=== PATIENT | male | born 1985 | race Caucasian/White ===

== ENCOUNTER 2019-03-10 08:35 | Emergency (ER) | payer BC, OTHER ==
--- NOTE | 2019-03-10 08:58 | ED ---
Complex/Multi-Sys Presentation - HPI Summary HPI Summary: A 33 y/o male presents to [facility] with a chief complaint of feeling nervous before a permanent move to [place] today. He reports that last night he woke up and felt really nervous, like before he was about to give a speech, and when he woke back up he still felt the same way. He thinks that something physical may be going on. He denies any routine headaches, urinary symptoms or abnormal bowel movements. He reports that two weeks ago he had a fever for one day, but he still has a cough. He also reports that hed occasionally feel a flutter in his chest. At triage he rated his pain as a 0/10 in severity. He states that he has not seen a doctor regularly or exercised regularly since 2010. He is a coffee drinker and admits to occasional EtOH use but denies smoking. He denies taking any medications, any PMHx of SHx. - History Of Current Complaint Chief Complaint: EDGeneral Time Seen by Provider: 03/10/19 08:49 Hx Obtained From: Patient Onset/Duration: Sudden Onset, Lasting Hours, Still Present Timing: Constant, Hours Severity Currently: None Severity Initially: Mild Location: Negative Character: Unable To Describe Aggravating Factor(s): nothing Alleviating Factor(s): nothing Associated Signs And Symptoms: Positive: Cough. Negative: Headache, Diarrhea, Fever - Allergies/Home Medications Allergies/Adverse Reactions: Allergies Allergy/AdvReac Type Severity Reaction Status Date / Time No Known Allergies Allergy Verified 03/10/19 08:41 Home Medications: Home Medications NK [No Home Medications Reported] 03/10/19 [History Confirmed 03/10/19] PMH/Surg Hx/FS Hx/Imm Hx Endocrine/Hematology History: Denies: Hx Diabetes, Hx Thyroid Disease Cardiovascular History: Denies: Hx Hypertension Respiratory History: Denies: Hx Asthma, Hx Chronic Obstructive Pulmonary Disease (COPD) GI History: Denies: Hx Ulcer Infectious Disease History: No Infectious Disease History: Denies: Hx Clostridium Difficile, Hx Hepatitis, Hx Human Immunodeficiency Virus (HIV), Hx of Known/Suspected MRSA, Hx Shingles, Hx Tuberculosis, Traveled Outside the [place] in Last 30 Days - Family History Known Family History: Negative: Cardiac Disease, Hypertension, Diabetes - Social History Alcohol Use: Occasionally Substance Use Type: Reports: None Smoking Status (MU): Never Smoked Tobacco Review of Systems Negative: Fever Positive: Other - positive: "flutter in chest" Positive: Cough Negative: Diarrhea Positive: no symptoms reported Negative: Headache Positive: Other - positive: nervous All Other Systems Reviewed And Are Negative: Yes Physical Exam - Summary Physical Exam Summary: Appearance: The patient is well-nourished in no acute distress and in no acute pain. Skin: The skin is warm and dry and skin color reflects adequate perfusion. HEENT: The head is normocephalic and atraumatic. The pupils are equal and reactive. The conjunctivae are clear and without drainage. Nares are patent and without drainage. Mouth reveals moist mucous membranes and the throat is without erythema and exudate. The external ears are intact. The ear canals are patent and without drainage. The tympanic membranes are intact. Neck: The neck is supple with full range of motion and non-tender. There are no carotid bruits. There is no neck vein distension. Respiratory: Chest is non-tender. Lungs are clear to auscultation and breath sounds are symmetrical and equal. Cardiovascular: Tachycardic at about 120 bpm. There is no murmur or rub auscultated. There is no peripheral edema and pulses are symmetrical and equal. Abdomen: The abdomen is soft and non-tender. There are normal bowel sounds heard in all four quadrants and there is no organomegaly palpated. Musculoskeletal: There is no back tenderness noted. Extremities are non-tender with full range of motion. There is good capillary refill. There is no peripheral edema or calf tenderness elicited. Neurological: Patient is alert and oriented to person, place and time. The patient has symmetrical motor strength in all four extremities. Cranial nerves are grossly intact. Deep tendon reflexes are symmetrical and equal in all four extremities. Psychiatric: The patient has an appropriate affect and does not exhibit any anxiety or depression. Triage Information Reviewed: Yes Vital Signs On Initial Exam: Initial Vitals Temp Pulse Resp BP Pulse Ox 98.9 F 105 16 150/99 99 03/10/19 08:37 03/10/19 08:37 03/10/19 08:37 03/10/19 08:37 03/10/19 08:37 Vital Signs Reviewed: Yes Diagnostics - Vital Signs Vital Signs Temp Pulse Resp BP Pulse Ox 03/10/19 08:37 98.9 F 105 16 150/99 99 - Laboratory Result Diagrams: 03/10/19 09:12 06/08/19 09:12 Lab Statement: Any lab studies that have been ordered have been reviewed, and results considered in the medical decision making process. - EKG 09:01 Cardiac Rate: Tachycardia - 101 bpm EKG Rhythm: Sinus Tachycardia Summary of EKG Findings: Sinus tachycardia at 101 bpm, normal ST, no ectopy, no STEMI. Re-Evaluation - Re-Evaluation First Eval Re-Evaluation Time: 11:01 Change: Unchanged Comment: Discussed results and plan for DC. Complex Multi-Symp Course/Dx Course Of Treatment: Mr. Arteaga presented with a concern that he woke up during the night and was wide awake. He had a great deal of difficulty getting back to sleep and once he did when he woke up in the morning he still felt very nervous. He was nontoxic in appearance with stable vitals. Labs are unremarkable including his thyroid as was his exam. This may all be anxiety related to the fact that he is moving to [place] today. I recommended he follow up with the PCP when he gets down there and he has a good job waiting for him working for the [employer] and should be able to accomplished easily. - Diagnoses Provider Diagnoses: Anxiety Discharge - Sign-Out/Discharge Documenting (check all that apply): Patient Departure - DC Patient Received Moderate/Deep Sedation with Procedure: No - Discharge Plan Condition: Stable Disposition: HOME Patient Education Materials: Anxiety (ED) Referrals: No Primary Care Phys,NOPCP [Primary Care Provider] - Additional Instructions: Establish with a PCP when you get to [place] Return to the ED if you experience any new or worsening symptoms. - Billing Disposition and Condition Condition: STABLE Disposition: Home - Attestation Statements Document Initiated by Kecia: Yes Documenting Scribe: Silvano Mccoy Provider For Whom Kecia is Documenting (Include Credential): Antolin Bettencourt MD Scribe Attestation: I, Silvano Mccoy, scribed for Antolin Bettencourt MD on 03/10/19 at 1304. Scribe Documentation Reviewed: Yes Provider Attestation: The documentation as recorded by the Silvano ludwig accurately reflects the service I personally performed and the decisions made by me, Antolin Bettencourt MD Status of Scribe Document: Viewed
[2019-03-10 09:19] LABS: Hematocrit 48 % (42-52); Hemoglobin 16.5 g/dL (14.0-18.0); Mean Corpuscular HGB Conc 34 g/dL (31-36); Mean Corpuscular Hemoglobin 32 pg (27-31); Mean Corpuscular Volume 94 fL (80-94); Mean Platelet Volume 9.5 fL (7.4-10.4); Platelet Count 239 10^3/uL (150-450); Red Blood Count 5.11 10^6 /uL (4.18-5.48); Red Cell Distribution Width 12 % (10-15); White Blood Count 5.5 10^3/uL (3.5-10.8)
[2019-03-10 09:36] LABS: Albumin 4.7 g/dL (3.2-5.2); Albumin/Globulin Ratio 1.9 (1-3); BUN/Creatinine Ratio 18.4 (8-20); Calcium 9.9 mg/dL (8.6-10.3); EGFR African American 101.3 (>60); EGFR Non-African American 83.7 (>60); Globulin 2.5 g/dL (2-4); Magnesium 1.9 mg/dL (1.9-2.7); Potassium 3.9 mmol/L (3.5-5.0); Total Bilirubin 1.1 mg/dL (0.2-1.0); Total Protein 7.2 g/dL (6.4-8.9)
[2019-03-10 09:49] LABS: ABS Lymphocytes 1.5 10^3/ul (1.0-4.8); ABS Monocytes 0.4 10^3/ul (0-0.8); ABS Neutrophils 3.6 10^3/ul (1.5-7.7); Eosinophil % 0.3 %; Lymphocyte % 27.5 %
[2019-03-10 10:40] LABS: TSH (Thyroid Stimulating Horm) 2.22 mcIU/mL (0.34-5.60)
[2019-03-10 11:14] VITALS: BP 122/93
== END 2019-03-10 11:13 | disposition home or self-care (01) ==
LOC: ED 08:35
DX: F41.9 Anxiety disorder, unspecified (principal); R05 Cough; R00.0 Tachycardia, unspecified
CPT/HCPCS: 36415; 80053; 83605; 83735; 84443; 84484; 85025; 85379; 93005; 99282